=== PATIENT | female | born 1950 | race African-American/Black ===

== ENCOUNTER 2017-05-05 17:31 | Emergency (ER) | payer OTHER, MEDICAID ==
[~2017-05-05] VITALS: Ht 160 cm; Wt 87.0 kg
[~2017-05-05 17:31] MED LIST: AMLODIPINE; ASPIRIN; HYDROCHLOROTHIAZIDE; LISI1POW; NAPROXEN; TRAMADOL
[2017-05-05] MEDS ORDERED: SODIUM CHLORIDE 0.9% 500 ML IV ONE (22:00)
[2017-05-05 22:26] LABS: CLARITY URINE CLEAR (CLEAR); COLOR URINE YELLOW (YELLOW); KETONES URINE NEGATIVE (NEGATIVE); LEUKOCYTE ESTERASE URINE NEGATIVE (NEGATIVE); NITRITE URINE NEGATIVE (NEGATIVE); OCCULT BLOOD URINE NEGATIVE (NEGATIVE); PROTEIN URINE NEGATIVE (NEGATIVE); SPECIFIC GRAVITY URINE 1.021 (1.005-1.030); UROBILINOGEN URINE 0.2 E.U./dL (0.2-1.0)
[2017-05-05 22:31] LABS: EOSINOPHILS % 2.6 % (0.0-5.0); HEMOGLOBIN. 15.1 g/dL (12.0-16.0); LYMPHOCYTES % 28.3 % (20.0-50.0); MEAN CORPUSCULAR HEMOGLOBIN 27.2 pg (28.0-32.0); MEAN CORPUSCULAR VOLUME 82.8 fL (81.0-99.0); MEAN PLATELET VOLUME 8.2 fl (7.4-10.4); MONOCYTES % 11.6 % (2.0-8.0); NEUTROPHILS % 56.5 % (40.0-76.0); PLATELET 280 x1000/uL (130-400); RED BLOOD CELL COUNT 5.56 mill/uL (4.2-5.4); RED CELL DISTRIBUTION WIDTH 15.3 % (11.6-14.6)
[2017-05-05 22:39] LABS: INR 1.1; PROTHROMBIN TIME 11.5 sec (9.4-11.6)
[2017-05-05 22:47] LABS: CARBON DIOXIDE 32 mEq/L (21-32); CHLORIDE 102 mEq/L (98-107); TROPONIN I < 0.02 ng/mL (0.00-0.04)
[2017-05-06 02:32] VITALS: BP 139/91
== END 2017-05-06 02:30 | disposition home or self-care (01) ==
LOC: ER 17:56
DX: J06.9 Acute upper respiratory infection, unspecified (principal); E11.65 Type 2 diabetes mellitus with hyperglycemia; E11.21 Type 2 diabetes mellitus with diabetic nephropathy; E86.0 Dehydration; I10 Essential (primary) hypertension; F17.200 Nicotine dependence, unspecified, uncomplicated; Z85.3 Personal history of malignant neoplasm of breast; Z79.82 Long term (current) use of aspirin
CPT/HCPCS: 36415; 71010; 80053; 81003; 83036; 83880; 84484; 85025; 85610; 87040; 87086; 93005; 99285; J7040

== ENCOUNTER 2018-12-31 20:53 | Inpatient (IN) | payer MEDICARE, MEDICAID ==
[~2018-12-31] VITALS: Ht 170.2 cm; Wt 78.5 kg
[2018-12-31] MEDS ORDERED: SODIUM CHLORIDE 0.9% 1,000 ML IV ONE (23:04)
[2018-12-31] MEDS ORDERED: FAMOTIDINE 20MG/2ML VIAL IV STA (23:04)
[2018-12-31] MEDS ORDERED: ONDANSETRON HCL 4MG/2ML INJ IV STA (23:04)
[2018-12-31] MEDS ORDERED: MORPHINE SULFATE 4 MG/ML CPJ (NOT FOR IM USE) IV STA (23:04)
[2018-12-31 23:42] LABS: HEMATOCRIT. 43.3 % (36.0-48.0); HEMOGLOBIN. 14.5 g/dL (12.0-16.0); MEAN CORPUSCULAR HEMOGLOBIN 27.1 pg (28.0-32.0); MEAN CORPUSCULAR VOLUME 80.8 fL (81.0-99.0); MEAN PLATELET VOLUME 8.5 fl (7.4-10.4); PLATELET 246 x1000/uL (130-400); RED BLOOD CELL COUNT 5.36 mill/uL (4.2-5.4); RED CELL DISTRIBUTION WIDTH 15.5 % (11.6-14.6)
[2018-12-31 23:45] LABS: CHLORIDE 105 mEq/L (98-107)
[2019-01-01 00:28] LABS: PLATELET ESTIMATE NORMAL
[2019-01-01] MEDS ORDERED: CEFTRIAXONE 1 G PREMIX 50 ML IV ONE (00:45)
[2019-01-01] MEDS ORDERED: METRONIDAZOLE 500 MG PREMIX 100 ML IV ONE (00:45)
[2019-01-01 02:18] LABS: CLARITY URINE CLOUDY (CLEAR); COLOR URINE YELLOW (YELLOW); KETONES URINE TRACE (NEGATIVE); LEUKOCYTE ESTERASE URINE 2+ (NEGATIVE); NITRITE URINE NEGATIVE (NEGATIVE); OCCULT BLOOD URINE NEGATIVE (NEGATIVE); PH URINE 5.5 (4.5-8.0); PROTEIN URINE NEGATIVE (NEGATIVE)
[2019-01-01 06:38] VITALS: BP 124/75
[2019-01-01 06:49] VITALS: BP 124/75
[2019-01-01 08:00] VITALS: BP 125/71
[2019-01-01] MEDS ORDERED: LORAZEPAM 0.5MG TABLET PO PRN (08:00)
[2019-01-01] MEDS ORDERED: ONDANSETRON HCL 4MG/2ML INJ IV PRN (08:00)
[2019-01-01] MEDS ORDERED: ACETAMINOPHEN 325MG TABLET PO PRN (08:00)
[2019-01-01] MEDS ORDERED: IPRATROPIUM/ALBUTEROL 0.5-3(2.5)MG/3ML NEB INH PRN (08:00)
[2019-01-01] MEDS ORDERED: CLONIDINE 0.1MG TABLET PO PRN (08:00)
[2019-01-01] MEDS: HYDROCODONE/ACETAMINOPHEN 5/325MG TABLET PO PRN ×2 (09:28→16:06)
[2019-01-01 09:59] LABS: *BARBITURATES SCREEN URINE NEGATIVE (NEGATIVE); *BENZODIAZEPINES SCREEN URINE NEGATIVE (NEGATIVE); *COCAINE SCREEN URINE NEGATIVE (NEGATIVE); CANNABINOID URINE SCREEN NEGATIVE (NEGATIVE); OPIATES URINE SCREEN PRESUMTIVE POSITIVE (NEGATIVE); PHENCYCLIDINE URINE SCREEN NEGATIVE (NEGATIVE)
[2019-01-01 10:01] LABS: *AMPHETAMINES SCREEN URINE NEGATIVE (NEGATIVE)
[2019-01-01 10:03] LABS: METHADONE URINE SCREEN NEGATIVE (NEGATIVE)
[2019-01-01 12:00] VITALS: BP 136/64
[2019-01-01] MEDS ORDERED: AMOX-424 MT (13:52)
[2019-01-01] MEDS ORDERED: CEFTRIAXONE 1 G PREMIX 50 ML IV SCH (15:00)
[2019-01-01 16:00] VITALS: BP 123/68
[2019-01-01 16:12] VITALS: BP 123/68
== END 2019-01-01 17:46 | disposition home or self-care (01) | DRG 690 ==
LOC: ER 20:53 → 6WST 01-01 03:11 → EDBEDREQ 01-01 03:14 → EDBEDREQTM 01-01 03:14 → ENRESERV 01-01 05:36
PROVIDERS: ADMIT Internal Medicine; ATTEND Internal Medicine
DX: N12 Tubulo-interstitial nephritis, not specified as acute or chronic (principal); R65.10 Systemic inflammatory response syndrome (SIRS) of non-infectious origin without acute organ dysfunction; E11.9 Type 2 diabetes mellitus without complications; F17.200 Nicotine dependence, unspecified, uncomplicated; I10 Essential (primary) hypertension; K57.30 Diverticulosis of large intestine without perforation or abscess without bleeding; K76.0 Fatty (change of) liver, not elsewhere classified; K82.4 Cholesterolosis of gallbladder; K86.89 Other specified diseases of pancreas; Z85.3 Personal history of malignant neoplasm of breast
CPT/HCPCS: 36415; 71045; 74176; 76705; 80305; 81003; 83605; 84484; 93005; 96361; 96374; 96375; 99285; J0696; J2270; J2405; J3490; J7030